=== PATIENT | male | born 1995 | race Caucasian/White ===

== ENCOUNTER 2019-03-25 02:04 | Emergency (ER) | payer OTHER ==
[2019-03-25 02:40] VITALS: BP 127/73; PULSE 65; O2SAT 100
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
== END 2019-03-25 03:33 | disposition home or self-care (01) ==
LOC: ED 02:04
DX: S99.821A Other specified injuries of right foot, initial encounter (principal); W22.8XXA Striking against or struck by other objects, initial encounter; Y92.000 Kitchen of unspecified non-institutional (private) residence as the place of occurrence of the external cause
CPT/HCPCS: 99283